=== PATIENT | male | born 1970 | race Caucasian/White ===

== ENCOUNTER 2017-06-29 12:42 | Outpatient (CLI) | payer BC ==
--- OUTSIDE RECORDS SUMMARY | 2017-06-29 12:45 | XMS | Clinical Summary ---
:1970 Author Organization [facility] Address [address] [place] [address] Phone Care Team Providers Name Role Phone , Primary Care Provider Unavailable Allergies Not on File Current Medications Not on file Active Problems Not on file Social History Tobacco Use Types Packs/Day Years Used Date Never Assessed Sex Assigned at Date Recorded Not on file Last Filed Vital Signs Not on file Plan of Treatment Not on file Results Not on filefrom Last 3 Months
[2017-06-29] MEDS ORDERED: Gadobenate Dimeglumine 529 MG/1 ML (20ML VIAL) ONE (14:30)
--- NOTE | 2017-06-29 15:13 | MRI ---
MRI OF THE LEFT FOREFOOT WITH AND WITHOUT IV CONTRAST: INDICATIONS: Plantar-based mass, growing for the last two weeks. CONTRAST: MultiHance 20 mL. COMPARISON: Radiographs of the left foot dated 06/23/2017. FINDINGS: A surface marker was placed on the plantar aspect of the forefoot, in the palpable region of interes t. Just along the medial aspect of the surface marker, there is a 3.4 x 2.4 x 2.8 cm fat signal int ensity mass lesion, that originates along the plantar aspect of the forefoot but extends into the gr eat toe second digit thumb interspace. The lesion demonstrates some internal enhancing septations, which may reflect small vessels. No large soft tissue mass component is evident. Findings are susp icious for a subcutaneous lipomatosis lesion. No additional mass-like opacity or region of abnormal enhancement is demonstrated. The flexor and extensor tendons are normal appearing. The toes are h eld in slight hyperextension for the exam. The Lisfranc ligament is intact. No drainable fluid col lection is evident. IMPRESSION: There is a lipomatous mass lesion seen along the plantar aspect of the great toe second digit inters pace, near the palpable region of interest. Podiatry referral or orthopedic foot and ankle referral is recommended. POS: OFF
== END 2017-06-29 12:43 | disposition home or self-care (01) ==
LOC: MRI 12:42
PROVIDERS: ATTEND Family Medicine
DX: R22.42 Localized swelling, mass and lump, left lower limb (principal)
CPT/HCPCS: A9579

== ENCOUNTER 2019-03-28 07:54 | Outpatient (CLI) | payer BC | END 2019-03-28 07:55 | disposition home or self-care (01) | LOC: CP 07:54 | PROVIDERS: ATTEND Family Medicine | DX: R05 Cough (principal); R06.2 Wheezing; Z87.891 Personal history of nicotine dependence | CPT/HCPCS: 94060; 94727; 94729 ==

== ENCOUNTER 2019-10-18 08:12 | Outpatient (CLI) | payer BC ==
--- NOTE | 2019-10-18 10:28 | RAD ---
MRI SAFETY ERNST VIEW: Date: 10/18/2019 PROVIDED CLINICAL HISTORY: Injury to eye with metallic object. FINDINGS: There is no evidence for metallic foreign body in the region of the orbits. IMPRESSION: As above. POS: OFF
--- NOTE | 2019-10-18 11:58 | MRI ---
MRI LUMBAR SPINE WITHOUT CONTRAST: Date: 10/18/2019 INDICATION: Acute right-sided low back pain. COMPARISON: None. FINDINGS: There is levoscoliosis of the lumbar spine centered at L2-3. There are Modic end plate degenerative c hanges at L2-3. Conus seen to terminate at approximately L1. At L5-S1, there is mild facet joint degenerative change. There is no appreciable central canal or shavonne ral foraminal narrowing. At L4-5, there is a broad based disc bulge with facet hypertrophy inducing mild central canal narrowi ng with mild bilateral neural foraminal narrowing, left greater than right. At L3-4, there is a broad based disc bulge with facet hypertrophy and ligamentum flavum hypertrophy i nducing severe central canal narrowing with moderate bilateral neural foraminal narrowing. At L2-3, there is a broad based bulge with facet hypertrophy inducing moderate central canal narrowin g with moderate to severe right and moderate left neural foraminal narrowing. At L1-2, there is mild broad based disc bulge with facet hypertrophy with no appreciable central mani l or neural foraminal narrowing. At T12-L1, there is a broad based bulge, but no appreciable central canal or neural foraminal narrowi ng. IMPRESSION: 1. Severe central canal narrowing at L3-4 with moderate bilateral neural foraminal narrowing at L3-4 . 2. Moderate central canal narrowing at L2-3 with moderate to severe right and moderate left neural f oraminal narrowing. 3. Mild bilateral neural foraminal narrowing at L4-5, left greater than right. POS: C
== END 2019-10-18 08:13 | disposition home or self-care (01) ==
LOC: BICMRI 08:12
PROVIDERS: ATTEND Family Medicine
DX: M54.41 Lumbago with sciatica, right side (principal); R33.9 Retention of urine, unspecified; M48.061 Spinal stenosis, lumbar region without neurogenic claudication
CPT/HCPCS: 70210; 72148

== ENCOUNTER 2020-09-07 06:16 | Outpatient (CLI) | payer BC ==
[2020-09-07 12:31] LABS: Hemoglobin 16.2 g/dL (14.0-18.0); Mean Corpuscular HGB CONC 33.8 G/DL (32.0-36.0); Mean Corpuscular Hemoglobin 30.6 PG (27.0-33.0); Mean Corpuscular Volume 90.7 fl (80.0-100.0); Mean Platelet Volume 10.3 fl (7.4-10.4); Platelet Count 292 10x3/uL (130-400); RBC Distribution Width 12.9 % (11.5-14.5); Red Blood Cell (RBC) Count 5.29 10x6/uL (4.40-5.80); White Blood Cell (WBC) Count 6.5 10x3/uL (4.5-11.0)
[2020-09-07 12:39] LABS: Anion Gap 16 mmol/L (10-20); BUN (Urea Nitrogen) 15 mg/dL (8.9-20.6); Calc. Creatinine Clearance 0 mL/min (70-130); Carbon Dioxide 26 mmol/L (22-29); Chloride 104 mmol/L (98-107); Glucose 79 mg/dL (70-105); Potassium 4.3 mmol/L (3.5-5.1); Sodium 142 mmol/L (136-145)
[2020-09-07 12:54] LABS: PTT 30.5 sec (22.0-33.0); Prothrombin Time 10.4 sec (9.5-12.1)
[2020-09-07 18:02] LABS: SARS-CoV-2 MS2 Positive; SARS-CoV-2 N Gene Negative; SARS-CoV-2 S Gene Negative; SARS-CoV-2 by NAA Not Detected (NotDetected); SARS-CoV-2 orf1ab Negative
== END 2020-09-07 06:17 | disposition home or self-care (01) ==
LOC: LABBT 06:16
PROVIDERS: ATTEND Surgery
DX: Z01.818 Encounter for other preprocedural examination (principal); M48.062 Spinal stenosis, lumbar region with neurogenic claudication; M54.16 Radiculopathy, lumbar region; Z20.828 Contact with and (suspected) exposure to other viral communicable diseases
CPT/HCPCS: 80048; 85027; 85610; 85730; 87635; 93005; 93010; U0003

== ENCOUNTER 2020-09-10 09:29 | Day surgery (SDC) | payer BC ==
[2020-09-10] MEDS ORDERED: Ketamine 50 MG/ML (10ML VIAL) ONE (09:55)
[2020-09-10] MEDS ORDERED: Fentanyl 100 MCG/2 ML VIAL ONE ×6 (09:55→17:43)
[2020-09-10] MEDS ORDERED: Propofol 1,000 MG/100 ML VIAL IV ONE ×2 (10:00→10:01)
[2020-09-10] MEDS ORDERED: Thrombin 5000 UNITS/5 ML VIAL ONE ×3 (10:09→15:33)
[2020-09-10] MEDS ORDERED: Rocuronium Bromide 10 MG/ML (10ML VIAL) ONE (11:07)
[2020-09-10] MEDS ORDERED: Dexamethasone 20 MG/5 ML VIAL ONE (11:07)
[2020-09-10] MEDS ORDERED: PROPOFOL 200 MG/20 ML VIAL ONE (11:07)
[2020-09-10] MEDS ORDERED: PHENYLEPHRINE-NS 100 MCG/ML 10 ML SYRINGE ONE (11:07)
[2020-09-10] MEDS ORDERED: Ondansetron PF 4 MG/2 ML Vial ONE (11:07)
[2020-09-10] MEDS ORDERED: PROPOFOL 20 ML ONE (13:10)
[2020-09-10] MEDS ORDERED: Rocuronium Bromide 50 MG/5 ML VIAL ONE (13:10)
[2020-09-10] MEDS ORDERED: Midazolam HCl 2 mg/2 ml Vial ONE (13:47)
[2020-09-10] MEDS ORDERED: SUGAMMADEX SODIUM 200 MG/2 ML VIAL ONE (14:44)
[2020-09-10] MEDS ORDERED: Ondansetron PF 4 MG/2 ML Vial IVP PRN (16:35)
[2020-09-10] MEDS ORDERED: Milk Of Magnesia 30 ML UDCUP PO PRN (16:35)
[2020-09-10] MEDS ORDERED: Morphine 2 MG/ML VIAL SLOW IVP PRN (16:35)
[2020-09-10] MEDS ORDERED: traMADol HCl 50 MG TAB PO PRN (16:35)
[2020-09-10] MEDS ORDERED: Acetaminophen 325 MG TAB PO PRN (16:35)
[2020-09-10] MEDS ORDERED: Acetaminophen/Codeine 30-300mg Tablet PO PRN (16:35)
[2020-09-10] MEDS ORDERED: Mag-Al 1200 mg/1200 mg/30 ML UDCUP PO PRN (16:35)
[2020-09-10] MEDS ORDERED: Bisacodyl 10 MG SUPP PR PRN (16:35)
[2020-09-10] MEDS ORDERED: Cyclobenzaprine 10 MG TAB PO PRN (16:37)
[2020-09-10] MEDS ORDERED: HYDROmorphone 2 MG/ML VIAL SLOW IVP PRN (16:53)
[2020-09-10] MEDS ORDERED: Ondansetron HCl/PF 4 MG/2 ML Vial IVP PRN (16:53)
[2020-09-10] MEDS ORDERED: Promethazine HCl 25 MG/ML VIAL SLOW IVP PRN (16:53)
[2020-09-10] MEDS ORDERED: Ketorolac Tromethamine 30 MG/ML VIAL IVP PRN (16:53)
[2020-09-10] MEDS ORDERED: Promethazine HCl 25 MG/ML VIAL IM PRN (16:53)
[2020-09-10] MEDS ORDERED: HYDROmorphone 2 MG/ML VIAL ONE (16:59)
[2020-09-10] MEDS ORDERED: tiZANidine HCl 4 MG TAB ONE (17:52)
[2020-09-10] MEDS ORDERED: Cyclobenzaprine 10 MG TAB ONE (17:58)
[2020-09-10] MEDS ORDERED: Ketorolac Tromethamine 30 MG/ML VIAL ONE (19:18)
[2020-09-10] MEDS ORDERED: Simvastatin 5 MG TAB PO SCH (21:00)
[2020-09-10] MEDS ORDERED: Cholecalciferol 1,000 UNITS (25 MCG) TAB PO SCH (21:00)
[2020-09-10] MEDS: HYDROcodone/Acetaminophen 7.5/325 mg Tablet PO PRN (21:58)
[2020-09-10] MEDS: CEFAZOLIN 2 GM in Premix Bag 1 BAG IVPB SCH (22:00)
[2020-09-11 00:28] VITALS: BMI 37.4
[2020-09-11] MEDS: Sodium Chloride 0.9% 1,000 ML IV SCH ×2 (02:18→05:38)
[2020-09-11] MEDS: HYDROcodone/Acetaminophen 7.5/325 mg Tablet PO PRN ×3 (02:54→14:40)
[2020-09-11 05:37] LABS: #Lymphocytes 1.3 thou/uL (1.20-3.40); #Monocytes 1.5 thou/uL (0.11-0.59); %Eosinophils 0.1 % (0.0-10.0); %Lymphocytes 8.3 % (21.0-51.0); %Monocytes 9.5 % (0.0-10.0); Mean Corpuscular HGB CONC 34.7 g/dL (32.0-36.0); Mean Corpuscular Hemoglobin 31.6 pg (27.0-31.0); Mean Corpuscular Volume 91.2 fL (78.0-98.0); Mean Platelet Volume 7.5 fL (7.4-10.4); Platelet Count 254 thou/uL (130-400); RBC Distribution Width 12.4 % (11.5-14.5); Red Blood Cell (RBC) Count 4.42 mill/uL (4.70-6.10); White Blood Cell (WBC) Count 15.8 thou/uL (4.8-10.8)
[2020-09-11] MEDS: CEFAZOLIN 2 GM in Premix Bag 1 BAG IVPB SCH (05:40)
[2020-09-11 05:56] LABS: Anion Gap 12 mmol/L (10-20); BUN (Urea Nitrogen) 18 mg/dL (8.4-25.7); Calc. Creatinine Clearance 138 mL/min (70-130); Carbon Dioxide 24 mmol/L (22-29); Chloride 104 mmol/L (98-107); Glucose 121 mg/dL (70-105); Potassium 4.1 mmol/L (3.5-5.1); Sodium 136 mmol/L (136-145)
[2020-09-11] MEDS ORDERED: Diazepam 5 MG TAB PO SCH (08:15)
[2020-09-11] MEDS ORDERED: Cyanocobalamin (Vitamin B-12) 1,000 MCG TAB PO SCH (09:00)
[2020-09-11] MEDS ORDERED: Calcium Carb, Cit/Magnesium Ox [Calmag Thins] 200 MG/50 MG Tab PO SCH (09:00)
[2020-09-11] MEDS ORDERED: Loratadine 10 MG TAB PO SCH (09:00)
[2020-09-11] MEDS ORDERED: Tamsulosin HCl 0.4 MG CAP PO SCH (09:00)
[2020-09-11] MEDS ORDERED: Multivit, Therapeutic 1 TAB PO SCH (09:00)
--- NOTE | 2020-09-11 10:29 | PRG ---
DATE OF SERVICE: 09/11/2020 Mr. Saeed is postoperative day #1, following an L2 through L5 decompression. He is doing very well with resolution of his leg pain. His strength is excellent throughout his lower extremity myotomes. We went over do's and don'ts in the postoperative period and he will be discharged. Job ID: [id number]
--- NOTE | 2020-09-11 11:07 | OP ---
DATE OF PROCEDURE: 09/10/2020 LEAN LEADER: Trina Medina PA-C PREPROCEDURE DIAGNOSIS: Right and left lumbar radiculopathy with synovial cyst resulted in low back and leg pain. PROCEDURES PERFORMED: 1. Right L2-L3 hemilaminotomy, foraminotomy. 2. Right L3-L4 hemilaminotomy, foraminotomy, and left L4-L5 hemilaminotomy, foraminotomy with left L3-L4 synovial cyst resection. DESCRIPTION OF PROCEDURE: After informed consent was obtained from the patient, the patient was brought to the OR. Proper patient, pause, and identification were carried out. . He was placed under excellent anesthesia using malignant hyperthermia protocol. A small midline lumbar wound was drawn out. This region was sterilely cleansed, prepared, and draped. Proper patient, pause, and identification were carried out. The wound was then opened with a combination of sharp, monopolar, and blunt dissection. The right L2-L3, L3-L4, and left L4-L5 segments were all exposed. Localization film confirmed area of interest and performed a right L2-L3 hemilaminotomy, foraminotomy, right L3-L4 hemilaminotomy, foraminotomy, and left L3-L4 synovial cyst resection. We then performed a left L4-L5 hemilaminotomy, foraminotomy. Copious irrigation occurred throughout as did maximizing hemostasis. The wound was then closed in anatomic layers following sprinkling of vancomycin powder. The patient emerged from anesthesia. Job ID: [id number]
[2020-09-11] MEDS ORDERED: Cholecalciferol 1,000 UNITS (25 MCG) TAB PO SCH (12:00)
[2020-09-11 15:31] VITALS: BP 140/80; TEMP 99.7
[2020-09-11] MEDS ORDERED: FLU VACC QS2020-21(6MOS UP)/PF 60 MCG/0.5 ML SYRINGE IM ONE (21:00)
--- NOTE | 2020-09-14 11:49 | DIS ---
DATE OF ADMISSION: 09/10/2020 DATE OF DISCHARGE: 09/11/2020 DIAGNOSES: 1. Lumbar stenosis. 2. Lumbar radiculopathy. 3. Lumbar synovial cyst. PROCEDURES: Right L2-L4 hemilaminotomies and foraminotomies; left L3-L4 synovial cyst resection; and left L4-L5 hemilaminotomy and foraminotomy on September 10, 2020. CONSULTS: None. HOSPITAL COURSE: Mr. Saeed is a pleasant 50-year-old gentleman who was admitted following the above lumbar decompression surgery for postoperative pain control and monitoring. He was doing very well postoperatively with quite a bit of low back pain and spasm, however he is very pleased that his preoperative leg pain has resolved. He demonstrates very good range of motion and excellent strength throughout his bilateral lower extremity myotomes. He has been able to ambulate steadily. He was discharged home in stable condition. Our team reviewed postoperative restrictions and wound care. He was provided with postoperative pain medications and muscle relaxants. Our team will arrange for outpatient followup in the upcoming weeks for reevaluation and wound check. Patient will call sooner with any questions or concerns. Job ID: [id number] [id number]
== END 2020-09-11 16:15 | disposition home or self-care (01) ==
LOC: SDC 09:29 → SURG A 16:35 → SDC 09-11 16:15
PROVIDERS: ATTEND Surgery
PROC: 0SB20ZZ Excision of Lumbar Vertebral Disc, Open Approach (ICD-10-PCS; principal; 2020-09-10)
DX: M48.062 Spinal stenosis, lumbar region with neurogenic claudication (principal); M54.16 Radiculopathy, lumbar region; Z79.899 Other long term (current) drug therapy
CPT/HCPCS: 36415; 76000; 80048; 85025; J0690; J1100; J1170; J1885; J2250; J2405; J2704; J3010; J3370; J3490

== ENCOUNTER 2021-05-21 19:30 | Outpatient (CLI) | payer BC | END 2021-05-21 19:31 | disposition home or self-care (01) | LOC: SLEEPLAB 19:30 | PROVIDERS: ATTEND Family Medicine | DX: G47.33 Obstructive sleep apnea (adult) (pediatric) (principal); R53.83 Other fatigue; R09.89 Other specified symptoms and signs involving the circulatory and respiratory systems; R06.83 Snoring; I10 Essential (primary) hypertension; E66.9 Obesity, unspecified; G47.00 Insomnia, unspecified; G47.10 Hypersomnia, unspecified; Z68.39 Body mass index [BMI] 39.0-39.9, adult | CPT/HCPCS: 95811 ==

== ENCOUNTER 2022-04-29 06:56 | Outpatient (CLI) | payer BC | END 2022-04-29 06:57 | disposition home or self-care (01) | LOC: BICULT 06:56 | PROVIDERS: ATTEND Family Medicine | DX: Z82.49 Family history of ischemic heart disease and other diseases of the circulatory system (principal) | CPT/HCPCS: 76775 ==

== ENCOUNTER 2022-06-01 14:16 | Outpatient (CLI) | payer BC | END 2022-06-01 14:17 | disposition home or self-care (01) | LOC: BICCT 14:16 | PROVIDERS: ATTEND Family Medicine | DX: I77.811 Abdominal aortic ectasia (principal); I70.0 Atherosclerosis of aorta; K57.30 Diverticulosis of large intestine without perforation or abscess without bleeding; M47.816 Spondylosis without myelopathy or radiculopathy, lumbar region; K42.9 Umbilical hernia without obstruction or gangrene; Z98.890 Other specified postprocedural states | CPT/HCPCS: 74175 ==

== ENCOUNTER 2023-09-30 13:53 | Emergency (ER) | payer BC ==
[2023-09-30 14:17] LABS: #Eosinphils 0.1 thou/uL (0.0-0.7); #Monocytes 0.7 thou/uL (0.11-0.59); #Neutrophils 6.7 thou/uL (1.40-6.50); %Basophils 0.4 % (0.0-1.0); %Eosinophils 0.8 % (0.0-10.0); %Lymphocytes 10.7 % (21.0-51.0); %Monocytes 8.4 % (0.0-10.0); %Neutrophils 79.5 % (42.0-75.0); Hematocrit 47.4 % (42.0-52.0); Hemoglobin 16.3 g/dL (14.0-18.0); Mean Corpuscular HGB CONC 34.4 g/dL (32.0-36.0); Mean Corpuscular Hemoglobin 29.5 pg (27.0-31.0); Mean Corpuscular Volume 85.7 fl (78.0-98.0); Mean Platelet Volume 9.3 fL (7.4-10.4); Platelet Count 279 10x3/uL (130-400); RBC Distribution Width 12.1 % (11.5-14.5); Red Blood Cell (RBC) Count 5.53 mill/uL (4.70-6.10); White Blood Cell (WBC) Count 8.4 10x3/uL (4.8-10.8)
[2023-09-30 14:33] LABS: ALT (SGPT) 16 U/L (8-55); AST (SGOT) 26 U/L (5-34); Albumin 4.3 g/dL (3.5-5.0); Alkaline Phosphatase 87 U/L (40-110); Anion Gap 15 mmol/L (10-20); BUN (Urea Nitrogen) 15 mg/dL (8.4-25.7); Bilirubin, Total 0.6 mg/dL (0.2-1.2); Calc. Creatinine Clearance 0 mL/min (70-130); Calcium 8.6 mg/dL (7.8-10.44); Carbon Dioxide 23 mmol/L (22-29); Chloride 98 mmol/L (98-107); Estimated GFR 56; Glucose 148 mg/dL (70-105); Potassium 3.6 mmol/L (3.5-5.1); Protein, Total 7.3 g/dL (6.0-8.3); Sodium 132 mmol/L (136-145)
[2023-09-30 14:37] LABS: Troponin I Less than 0.010 ng/mL (< 0.028)
== END 2023-09-30 19:20 | disposition home or self-care (01) ==
LOC: ERS 13:53
DX: R55 Syncope and collapse (principal); I10 Essential (primary) hypertension
CPT/HCPCS: 36415; 71045; 80053; 83880; 84484; 85025; 93005; 96360; 96361

== ENCOUNTER 2023-10-21 20:27 | Emergency (ER) | payer BC ==
[2023-10-21 21:13] LABS: #Basophils 0.1 thou/uL (0.0-0.2); #Eosinphils 0.1 thou/uL (0.0-0.7); #Monocytes 0.6 thou/uL (0.11-0.59); #Neutrophils 5.5 thou/uL (1.40-6.50); %Basophils 0.8 % (0.0-1.0); %Eosinophils 1.9 % (0.0-10.0); %Lymphocytes 14.9 % (21.0-51.0); %Monocytes 7.5 % (0.0-10.0); %Neutrophils 74.6 % (42.0-75.0); Hematocrit 46.8 % (42.0-52.0); Hemoglobin 16.1 g/dL (14.0-18.0); Mean Corpuscular HGB CONC 34.4 g/dL (32.0-36.0); Mean Corpuscular Hemoglobin 29.7 pg (27.0-31.0); Mean Corpuscular Volume 86.3 fl (78.0-98.0); Mean Platelet Volume 9.3 fL (7.4-10.4); Platelet Count 339 10x3/uL (130-400); RBC Distribution Width 12.7 % (11.5-14.5); Red Blood Cell (RBC) Count 5.42 mill/uL (4.70-6.10); White Blood Cell (WBC) Count 7.3 10x3/uL (4.8-10.8)
[2023-10-21 21:28] LABS: ALT (SGPT) 19 U/L (8-55); AST (SGOT) 35 U/L (5-34); Albumin 4.4 g/dL (3.5-5.0); Alkaline Phosphatase 78 U/L (40-110); Anion Gap 13 mmol/L (10-20); BUN (Urea Nitrogen) 13 mg/dL (8.4-25.7); Bilirubin, Total 0.4 mg/dL (0.2-1.2); Calc. Creatinine Clearance 0 mL/min (70-130); Calcium 8.7 mg/dL (7.8-10.44); Carbon Dioxide 22 mmol/L (22-29); Chloride 106 mmol/L (98-107); Estimated GFR 87; Globulin 2.4 g/dL (2.4-3.5); Glucose 121 mg/dL (70-105); Potassium 3.9 mmol/L (3.5-5.1); Protein, Total 6.8 g/dL (6.0-8.3); Sodium 137 mmol/L (136-145)
[2023-10-21 21:33] LABS: Troponin I Less than 0.010 ng/mL (< 0.028)
[2023-10-21] MEDS ORDERED: hydrOXYzine 25 MG TAB ONE (23:08)
== END 2023-10-22 00:03 | disposition home or self-care (01) ==
LOC: ERS 20:27
DX: I10 Essential (primary) hypertension (principal)
CPT/HCPCS: 36415; 71045; 80053; 84484; 85025; 93005

== ENCOUNTER 2025-05-28 09:16 | Outpatient (CLI) | payer BC | END 2025-05-28 09:17 | disposition home or self-care (01) | LOC: SCSRAD 09:16 | PROVIDERS: ATTEND Family Medicine | DX: R06.02 Shortness of breath (principal) | CPT/HCPCS: 71046 ==

== ENCOUNTER 2025-06-26 10:18 | Outpatient (CLI) | payer BC | END 2025-06-26 10:19 | disposition home or self-care (01) | LOC: SCSRAD 10:18 | DX: M25.561 Pain in right knee (principal) ==

== ENCOUNTER 2025-07-16 13:44 | Outpatient (CLI) | payer BC | END 2025-07-16 13:45 | disposition home or self-care (01) | LOC: RAD 13:44 | PROVIDERS: ATTEND Internal Medicine | DX: R06.00 Dyspnea, unspecified (principal) | CPT/HCPCS: 71046 ==